=== PATIENT | male | born 1940 | race Caucasian/White ===

== ENCOUNTER 2019-03-16 15:17 | Emergency (ER) | payer OTHER ==
[2019-03-16 17:18] LABS: Hemoglobin 12.3 g/dL (14.0-18.0); Mean Corpuscular Hemoglobin 32.7 pg (27.0-31.0); Mean Platelet Volume 11.4 fL (7.4-10.4); Platelet Count 92 thou/uL (130-400); RBC Distribution Width 17.4 % (11.5-14.5); Red Blood Cell (RBC) Count 3.78 mill/uL (4.70-6.10); White Blood Cell (WBC) Count 23.2 thou/uL (4.8-10.8)
--- NOTE | 2019-03-16 17:24 | RAD ---
XR Chest 1 View Portable HISTORY: Shortness of breath, cough, fever COMPARISON: 02/05/2017 FINDINGS: The heart is enlarged. There is mild pulmonary vascular congestion. No lobar consolidation, pneumothoraces or large effusions are identified. Chronic changes are again seen. Postop changes in the lower cervical spine are redemonstrated.
[2019-03-16 17:40] LABS: Anisocytosis SLIGHT = 6-15 cells (100X) (0-5/hpf); Band 9 % (5-11); Lymphocytes 9 % (21-51); MDiff Complete? YES; Monocytes 11 % (0-10); Neutrophil 71 % (42-75); Platelet Morphology Comment Appears Decreased
[2019-03-16] MEDS ORDERED: cefTRIAXone\\ROCEPHIN 1 GM VIAL ONE (17:45)
[2019-03-16 18:22] LABS: ALT (SGPT) 51 U/L (8-55); AST (SGOT) 49 U/L (5-34); Albumin 4.1 g/dL (3.4-4.8); Alkaline Phosphatase 72 U/L (40-150); Anion Gap 15 mmol/L (10-20); BUN (Urea Nitrogen) 31 mg/dL (8.4-25.7); Bilirubin, Total 1.1 mg/dL (0.2-1.2); Calc. Creatinine Clearance 0 mL/min (70-130); Calcium 8.6 mg/dL (7.8-10.44); Carbon Dioxide 23 mmol/L (23-31); Chloride 104 mmol/L (98-107); Estimated GFR-MDRD 33; Globulin 3.3 g/dL (2.4-3.5); Glucose 85 mg/dL (83-110); Protein, Total 7.4 g/dL (5.8-8.1); Sodium 137 mmol/L (136-145)
[2019-03-16] MEDS ORDERED: methylPREDNISolone Sod Succ/PF 125 MG/2 ML VIAL ONE (18:41)
[2019-03-16] MEDS ORDERED: Aspirin Chewable 81 MG TAB ONE (18:41)
== END 2019-03-17 02:30 ==
LOC: ERS 15:17
DX: A41.9 Sepsis, unspecified organism (principal); R65.20 Severe sepsis without septic shock; J18.9 Pneumonia, unspecified organism; N17.9 Acute kidney failure, unspecified; D69.6 Thrombocytopenia, unspecified; R09.02 Hypoxemia; I25.2 Old myocardial infarction; E78.5 Hyperlipidemia, unspecified; E78.00 Pure hypercholesterolemia, unspecified; I10 Essential (primary) hypertension; N40.0 Benign prostatic hyperplasia without lower urinary tract symptoms; Z85.828 Personal history of other malignant neoplasm of skin; F32.9 Major depressive disorder, single episode, unspecified; Z79.899 Other long term (current) drug therapy; Z79.82 Long term (current) use of aspirin
CPT/HCPCS: 71045; 80053; 82550; 83605; 83880; 84484; 85025; 87040; 87149; 93005; 94640; 96365; 96375; J0696; J1956; J2930; J7620

== ENCOUNTER 2019-04-17 15:53 | Emergency (ER) | payer OTHER ==
--- NOTE | 2019-04-17 16:47 | CT ---
CT BRAIN 04/17/19 PROVIDED CLINICAL HISTORY: Fall. FINDINGS: Comparison 01/05/13. The ventricular system appears normal in size and morphology. There is no evidence for intracranial h emorrhage or mass effect. 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 The extracranial soft tissues and osseous structures demonstrate no evidence for an acute process. IMPRESSION: No evidence for intracranial hemorrhage or mass effect. POS: OFF
--- NOTE | 2019-04-17 17:14 | CT ---
CT FACIAL BONES: 04/17/19 PROVIDED CLINICAL HISTORY: Right sided facial pain status post fall. FINDINGS: There is no evidence for fracture. Partial opacification of the sphenoid sinus. The globes and other orbital contents demonstrate a normal CT appearance. IMPRESSION: No evidence for fracture. POS: OFF
== END 2019-04-17 16:56 | disposition home or self-care (01) ==
LOC: ERS 15:53
DX: S00.83XA Contusion of other part of head, initial encounter (principal); I25.2 Old myocardial infarction; I25.10 Atherosclerotic heart disease of native coronary artery without angina pectoris; I10 Essential (primary) hypertension; N40.0 Benign prostatic hyperplasia without lower urinary tract symptoms; E78.00 Pure hypercholesterolemia, unspecified; F32.9 Major depressive disorder, single episode, unspecified; Z85.828 Personal history of other malignant neoplasm of skin; Z79.899 Other long term (current) drug therapy; Z79.82 Long term (current) use of aspirin; W18.30XA Fall on same level, unspecified, initial encounter
CPT/HCPCS: 70450; 70486

== ENCOUNTER 2019-08-31 20:30 | Outpatient (CLI) | payer OTHER | END 2019-08-31 20:31 | disposition home or self-care (01) | LOC: SLEEPLAB 20:30 | PROVIDERS: ATTEND Internal Medicine Critical Care Medicine | DX: G47.33 Obstructive sleep apnea (adult) (pediatric) (principal); R53.83 Other fatigue; G47.31 Primary central sleep apnea | CPT/HCPCS: 95811 ==

== ENCOUNTER 2019-11-20 20:30 | Outpatient (CLI) | payer OTHER | END 2019-11-20 20:31 | disposition home or self-care (01) | LOC: SLEEPLAB 20:30 | PROVIDERS: ATTEND Internal Medicine Critical Care Medicine | DX: G47.33 Obstructive sleep apnea (adult) (pediatric) (principal); R53.83 Other fatigue; R06.83 Snoring; G47.10 Hypersomnia, unspecified; G47.31 Primary central sleep apnea; E66.9 Obesity, unspecified; Z68.35 Body mass index [BMI] 35.0-35.9, adult | CPT/HCPCS: 95811 ==

== ENCOUNTER 2021-03-21 15:41 | Emergency (ER) | payer OTHER, MEDICARE ==
[2021-03-21] MEDS ORDERED: Lidocaine 1% (PF) 30 ML VIAL ONE (18:53)
== END 2021-03-21 21:36 | disposition home or self-care (01) ==
LOC: ERS 15:41
DX: S61.112A Laceration without foreign body of left thumb with damage to nail, initial encounter (principal); W45.8XXA Other foreign body or object entering through skin, initial encounter; Z79.899 Other long term (current) drug therapy; Z79.891 Long term (current) use of opiate analgesic; I25.2 Old myocardial infarction; I25.10 Atherosclerotic heart disease of native coronary artery without angina pectoris; E78.00 Pure hypercholesterolemia, unspecified; I10 Essential (primary) hypertension
CPT/HCPCS: 12032; J2001

== ENCOUNTER 2024-05-21 14:01 | Outpatient (CLI) | payer OTHER | END 2024-05-21 14:02 | disposition home or self-care (01) | LOC: MRI 14:01 | PROVIDERS: ATTEND Specialist | DX: S32.000D Wedge compression fracture of unspecified lumbar vertebra, subsequent encounter for fracture with routine healing (principal); M47.816 Spondylosis without myelopathy or radiculopathy, lumbar region | CPT/HCPCS: 72148 ==